=== PATIENT | male | born 1995 | race Caucasian/White ===

== ENCOUNTER 2018-02-06 10:46 | Emergency (ER) | payer BC, OTHER ==
[2018-02-06 11:03] VITALS: BP 126/73
--- NOTE | 2018-02-06 11:31 | UC ---
Throat Pain/Nasal Alan HPI - HPI Summary HPI Summary: [address] and right ear pain. Concern for strep. No exposure. ? fever last weekend after having food poisoning. - History of Current Complaint Chief Complaint: UCRespiratory Stated Complaint: SORE THROAT Time Seen by Provider: 02/06/18 11:18 Hx Obtained From: Patient Onset/Duration: Sudden Onset Pain Intensity: 4 Cough: Nonproductive - Allergies/Home Medications Allergies/Adverse Reactions: Allergies Allergy/AdvReac Type Severity Reaction Status Date / Time No Known Allergies Allergy Verified 02/06/18 10:57 Home Medications: Home Medications Ranitidine TAB (NF) [Zantac TAB (NF)] 150 mg PO BID PRN 02/06/18 [History Confirmed 02/06/18] PMH/Surg Hx/FS Hx/Imm Hx Previously Healthy: Yes - Surgical History Surgical History: None - Family History Known Family History: Positive: None - Social History Occupation: Employed Full-time Lives: With Family Alcohol Use: None Substance Use Type: None Smoking Status (MU): Former Smoker When Did the Patient Quit Smoking/Using Tobacco: 1 year ago Review of Systems ENT: Sore Throat, Ear Ache Is Patient Immunocompromised?: No All Other Systems Reviewed And Are Negative: Yes Physical Exam Triage Information Reviewed: Yes Appearance: Well-Appearing, No Pain Distress, Well-Nourished Vital Signs: Initial Vital Signs Temp 98.5 F 02/06/18 10:58 Pulse 59 02/06/18 10:58 Resp 14 02/06/18 10:58 BP 126/73 02/06/18 10:58 Pulse Ox 99 02/06/18 10:58 Eye Exam: Normal ENT Exam: Normal ENT: Positive: Pharyngeal erythema, TM dull - right. Negative: TM bulging, TM red Dental Exam: Normal Neck exam: Normal Neck: Positive: 1 Respiratory Exam: Normal Cardiovascular Exam: Normal Musculoskeletal Exam: Normal Neurological Exam: Normal Psychological Exam: Normal Skin Exam: Normal Throat Pain/Nasal Course/Dx - Course Course Of Treatment: neg strep. RTO if any concerns - Differential Dx/Diagnosis Differential Diagnosis/HQI/PQRI: Pharyngitis, Sinusitis, Tonsillitis, URI Provider Diagnoses: Viral Pharyngitis Discharge - Sign-Out/Discharge Documenting (check all that apply): Patient Departure All imaging exams completed and their final reports reviewed: No Studies - Discharge Plan Condition: Good Disposition: HOME Patient Education Materials: Pharyngitis (ED) Referrals: No Primary Care Phys,NOPCP [Primary Care Provider] - Additional Instructions: Today your strep testing was negative. - Billing Disposition and Condition Condition: GOOD Disposition: Home
== END 2018-02-06 11:37 | disposition home or self-care (01) ==
LOC: UCCORT 10:46
DX: J02.8 Acute pharyngitis due to other specified organisms (principal); Z87.891 Personal history of nicotine dependence
CPT/HCPCS: 87651; 99201; G0463